=== PATIENT | female | born 1980 | race African-American/Black ===

== ENCOUNTER 2016-05-22 17:24 | Emergency (ER) | payer BC, OTHER ==
[~2016-05-22] VITALS: Ht 172.7 cm; Wt 95.0 kg
[~2016-05-22 17:24] MED LIST: COLY4000S PO; MACR100C37 PO; PYRI200T4 PO; TYLE3 PO
[2016-05-22 17:33] VITALS: BP 126/90; PULSE 86; RESP 16; TEMP 98.3; O2SAT 97
[2016-05-22] MEDS ORDERED: DICL50TA PO (17:58)
[2016-05-22] MEDS ORDERED: ROBA750T PO (17:58)
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
[2016-05-22] MEDS ORDERED: IBUPROFEN 800 MG TAB PO ONE (18:00)
[2016-05-22] MEDS ORDERED: METHOCARBAMOL 500 MG TAB PO ONE (18:00)
== END 2016-05-22 18:40 | disposition home or self-care (01) ==
LOC: NEPB 17:24
DX: S39.012A Strain of muscle, fascia and tendon of lower back, initial encounter (principal); V43.52XA Car driver injured in collision with other type car in traffic accident, initial encounter
CPT/HCPCS: 99283